=== PATIENT | male | born 1990 | race Caucasian/White ===

== ENCOUNTER 2017-11-30 18:19 | Emergency (ER) | payer SELFPAY ==
[2017-11-30] MEDS ORDERED: Vibramycin 100 MG PO ONE (18:26)
[2017-11-30] MEDS ORDERED: Vibramycin 100 MG ONE (18:29)
--- NOTE | 2017-11-30 18:31 | ERPHSYRPT ---
- History of Present Illness Time Seen by Provider: 11/30/17 18:26 Source: patient Exam Limitations: no limitations Physician History: single nonraised red rash of the left thigh for 4 days after working in the [employer], no fever, mild itch, ambulatory Allergies/Adverse Reactions: No Known Drug Allergies Allergy (Unverified 04/26/13 15:26) Home Medications: No Home Meds [No Home Meds] 0 04/26/13 [History] Hx Tetanus, Diphtheria Vaccination/Date Given: Yes Hx Influenza Vaccination/Date Given: No Hx Pneumococcal Vaccination/Date Given: No - Review of Systems Constitutional: No Fever Eyes: No Eye Redness Ears, Nose, & Throat: No Throat Swelling Respiratory: No Cough, No Dyspnea Cardiac: No Chest Pain Abdominal/Gastrointestinal: No Abdominal Pain Skin: Rash Neurological: No Dizziness - Past Medical History Pertinent Past Medical History: No Other Medical History: RECENT UTI - Past Surgical History Past Surgical History: Yes Musculoskeletal: Orthopedic Surgery Other Surgical History: FX RT LOWER LEG--PLATE IN LOWER LEG-PIN IN ANKLE - Social History Smoking Status: Never smoker Exposure to second hand smoke: No Alcohol Use: Socially Drug Use: none Patient Lives Alone: No Significant Family History: no pertinent family hx - Physical Exam General Appearance: no apparent distress Respiratory Exam: normal breath sounds Extremity Exam: other (red 10cm rash on proximal left thigh, nontender, no sts, no streaks, no tick seen) Neurologic Exam: alert, oriented x 3, cooperative Skin Exam: rash - Course Nursing assessment & vital signs reviewed: Yes - Progress Progress: unchanged Progress Note: 11/30/17 18:20 differential d/w pt as lyme disease Discussed with : Master Will see patient in: office Counseled pt/family regarding: diagnosis, need for follow-up - Departure Time of Disposition: 18:30 Departure Disposition: Home Clinical Impression: Rash Condition: Stable Critical Care Time: No Instructions: Lyme Disease (DC) Prescriptions: Doxycycline Hyclate 100 mg [Vibramycin 100 MG] 1 tab PO BID #20 tab
[2017-11-30 18:53] VITALS: BP 127/82; PULSE 68; O2SAT 97
== END 2017-11-30 18:51 | disposition home or self-care (01) ==
LOC: ED 18:19
DX: R21 Rash and other nonspecific skin eruption (principal)
CPT/HCPCS: 99283; A9270-GY

== ENCOUNTER 2018-01-19 22:11 | Emergency (ER) | payer OTHER ==
[2018-01-19] MEDS ORDERED: Norco 10/325 MG Tablet PO ONE (22:56)
[2018-01-19] MEDS ORDERED: Norco 10/325 MG Tablet ONE (23:17)
--- NOTE | 2018-01-19 23:22 | ERPHSYRPT ---
- History of Present Illness Time Seen by Provider: 01/19/18 22:30 Exam Limitations: clinical condition Patient Subjective Stated Complaint: playing basketball and collided with another player. heard a snap and a pop and now he can not move his right shoulder Triage Nursing Assessment: Pt was playing basketball and collided with another player hurting his right shoulder and neck. Unable to move right arm and neck feels as if there is a cramp in it, pulses normal, vitals wnl Physician History: PATIENT PLAYING BASKETBALL COLLIDED WITH ANOTHER PLAYER SUSTAINED INJURY TO HIS RIGHT SHOULDER AND RIGHT SIDED NECK PAIN. DENIES PAIN OR NUMBNESS RADIATING DOWN RIGHT ARM. DENIES HEAD INJURY, LOSS OF CONSCIOUSNESS. Occurred: just prior to arrival Injuries/Pain Location: neck, upper extremity Loss of Consciousness: no loss of consciousness Quality: sharpness, stabbing Severity of Pain-Max: moderate Severity of Pain-Current: moderate Associated Symptoms (Fall): neck pain Allergies/Adverse Reactions: No Known Drug Allergies Allergy (Verified 01/19/18 22:28) Home Medications: No Home Meds [No Home Meds] 0 mg PO DAILY 04/26/13 [History] Hx Tetanus, Diphtheria Vaccination/Date Given: Yes Hx Influenza Vaccination/Date Given: No Hx Pneumococcal Vaccination/Date Given: No - Review of Systems Constitutional: No Fever, No Chills Eyes: No Symptoms Ears, Nose, & Throat: No Symptoms Respiratory: No Cough, No Dyspnea Cardiac: No Chest Pain, No Edema, No Syncope Abdominal/Gastrointestinal: No Abdominal Pain, No Nausea, No Vomiting, No Diarrhea Genitourinary Symptoms: No Dysuria Musculoskeletal: No Symptoms, Injury, Joint Pain, Joint Swelling, No Back Pain, No Neck Pain Skin: No Rash Neurological: No Dizziness, No Focal Weakness, No Sensory Changes Psychological: No Symptoms Endocrine: No Symptoms All Other Systems: Reviewed and Negative - Past Medical History Pertinent Past Medical History: No Other Medical History: RECENT UTI - Past Surgical History Past Surgical History: Yes Musculoskeletal: Orthopedic Surgery Other Surgical History: FX RT LOWER LEG--PLATE IN LOWER LEG-PIN IN ANKLE - Social History Smoking Status: Never smoker Exposure to second hand smoke: No Alcohol Use: Socially Drug Use: none Patient Lives Alone: Yes Significant Family History: no pertinent family hx - Nursing Vital Signs Nursing Vital Signs: Initial Vital Signs Temperature 98.4 F 01/19/18 22:17 Pulse Rate 83 06/24/18 22:17 Blood Pressure 137/80 01/19/18 22:17 O2 Sat by Pulse Oximetry 97 01/19/18 22:17 Pain Scale Pain Intensity 3 - Frohna Coma Score Best Eye Response (Toney): (4) open spontaneously Best Verbal Response (Frohna): (5) oriented Best Motor Response (Toney): (6) obeys commands Toney Total: 15 - Physical Exam General Appearance: no apparent distress, alert Head Injury: no evidence of injury Eye Exam: PERRL/EOMI ENT Exam: airway nml Neck Exam: normal inspection, No tenderness Respiratory/Chest Exam: normal breath sounds, No chest tenderness, No respiratory distress Cardiovascular Exam: normal heart sounds, regular rate/rhythm Gastrointestinal Exam: soft, No tenderness, No distention, No guarding, No ecchymosis Back Exam: normal inspection, muscle spasm, No vertebral tenderness Extremity Exam: normal range of motion, pelvis stable, joint swelling ( TENDERNESS WITH MODERATE SWELLING RIGHT HUMERAL HEAD, RIGHT RADIAL PULSE 2+), pain with movement, No deformities Peripheral Pulses: carotid (R): 2+, carotid (L): 2+, femoral (R): 2+, femoral (L ): 2+ Neurologic Exam: alert, oriented x 3, cooperative, sensation nml, No motor deficits Skin Exam: normal color, warm, dry SpO2: 97 Oxygen Delivery: Room Air - Radiology Exams Right Shoulder X-ray Interpretation: Interpreted by me, Negative, No Fracture (NO DISLOCATION) - CT Exams Cervical Spine CT Interpretation: Tele-radiologist Report, No Fracture, No Subluxation Ordered Tests: Active Orders 24 hr Category Date Time Status Cervical Collar Application STAT Care 01/19/18 22:54 Active Sling Application STAT Care 01/19/18 23:03 Active CERVICAL SPINE WO CONTRAST [CT] Stat Exams 01/19/18 22:56 Taken SHOULDER Stat Exams 01/19/18 22:55 Taken Medication Summary Discontinued Medications Generic Name Dose Route Start Last Admin Trade Name Freq PRN Reason Stop Dose Admin Hydrocodone Bitart/Acetaminophen 1 tab 01/19/18 22:56 01/19/18 23:18 Mifflin 10/325 Mg Tablet PO 01/19/18 22:57 1 tab STAT ONE Administration Hydrocodone Bitart/Acetaminophen Confirm 01/19/18 23:17 Mifflin 10/325 Mg Tablet Administered 01/19/18 23:18 Dose 1 tab .ROUTE .STK-MED ONE - Progress Progress: pain not gone completely Progress Note: 01/20/18 00:15 ADMINISTERED NORCO 10/325 ORALLY, PLROVIDED WITH RIGHT ARM SLING Counseled pt/family regarding: diagnosis, need for follow-up, rad results - Departure Time of Disposition: 00:25 Departure Disposition: Home Clinical Impression: ACUTE CERVICAL STRAIN, INTERNAL DERRANGEMENT RIGHT SHOULDER Condition: Stable Critical Care Time: No Referrals: DOCTOR,NO FAMILY [Primary Care Provider] - Additional Instructions: WEAR ARM SLING FOR COMFORT FOR 1 WEEK. APPLY ICE OVER SHOULDER SWELLING EVERY 4 HOURS, 30 MINUTES FOR 48 HOURS. CONSULT YOUR PRIMARY CARE PROVIDER FOR FOLLOWUP IN 1 WEEK. ULTRAM 50MG EVERY 6 HOURS NEEDED FOR PAIN DISCOMFORT. Prescriptions: Tramadol HCl 50 mg [Ultram 50 mg] 50 mg PO Q6H PRN PRN #15 tablet PRN Reason: Pain
[2018-01-20 00:39] VITALS: BP 129/66; PULSE 73; O2SAT 95
--- NOTE | 2018-01-20 15:30 | XRAY ---
Exam: 3 views of the right shoulder from 01/19/2018. Comparison: None of the right shoulder. Indication: Sports injury, patient collided with another player. Findings: AP internal rotation, AP external rotation, and Y views of the right shoulder were obtained. I see no acute fracture or dislocation. The right clavicle appears intact. Both the glenohumeral joint space and acromioclavicular joint appear unremarkable. No abnormal periarticular soft tissue calcifications are seen. The visualized right lung appears clear. Impression: 1. No acute right shoulder fracture or dislocation is seen.
--- NOTE | 2018-01-20 15:47 | XRAY ---
Exam: CT of the cervical spine without IV contrast from 01/19/2018. CTDI: 91.25 Comparison: None. Indication: 27-year-old male patient with sports injury, patient collided with another player playing basketball and heard a "snap", felt a pop and now he he has decreased range of motion within his right shoulder/right arm. Technique: Non-IV contrast axial images were obtained through the cervical spine. Reconstructed coronal and sagittal images were created and reviewed. Findings: I see no acute cervical spine fracture, AP subluxation, or abnormal prevertebral soft tissue swelling. The preodontoid space is normal. There is some straightening of the cervical spine on the lateral radiograph which could be due to patient positioning or some paravertebral muscular spasm. The facet joints appear unremarkable. The C1-C2 relationship appears normal. No significant central canal spinal stenosis is seen. I note a minimal posterior vertebral endplate spur to the right of midline at C6-C7. The neural foramen appear unremarkable. No cervical ribs are seen. The thyroid gland appears grossly unremarkable. Lung apices appear unremarkable. A few small nonspecific lymph nodes are seen within the soft tissues of the neck. Impression: 1. No acute cervical spine fracture or AP subluxation is seen..
== END 2018-01-20 00:33 | disposition home or self-care (01) ==
LOC: ED 22:11
DX: S16.1XXA Strain of muscle, fascia and tendon at neck level, initial encounter (principal); S49.91XA Unspecified injury of right shoulder and upper arm, initial encounter; M54.2 Cervicalgia; W51.XXXA Accidental striking against or bumped into by another person, initial encounter; Y93.67 Activity, basketball
CPT/HCPCS: 72125; 73030; 99284; L0172; A9270-GY

== ENCOUNTER 2018-05-22 17:41 | Emergency (ER) | payer SELFPAY ==
[2018-05-22 17:52] VITALS: O2SAT 99
--- NOTE | 2018-05-22 18:03 | ERPHSYRPT ---
- History of Present Illness Time Seen by Provider: 05/22/18 17:50 Source: patient Exam Limitations: no limitations Patient Subjective Stated Complaint: PT states "I have this rash for about 2 days. 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 PT ambulates with an upright steady gait, able to speak in clear full sentences. PT has red non raised spots on his neck, chest, abdomen. Physician History: 27 y/o white male presents with a day and a half h/o itchy skin and rash. began on ant trunk then spread generally. no known new exposures except at work a week ago began working with fiber [employer]. no problems breathing. pt has not tx it with anything. Timing/Duration: day(s) (1.5) Quality: itchy Severity: mild Location: torso, extremities Possible Causes: no cause identified Modifying Factors: Improves With: other (nothing) Associated Symptoms: rash Allergies/Adverse Reactions: No Known Drug Allergies Allergy (Verified 01/19/18 22:28) Home Medications: No Home Meds [No Home Meds] 0 mg PO DAILY 04/26/13 [History] Hx Tetanus, Diphtheria Vaccination/Date Given: No Hx Influenza Vaccination/Date Given: No Hx Pneumococcal Vaccination/Date Given: No Immunizations Up to Date: Yes - Review of Systems Constitutional: No Symptoms Eyes: No Symptoms Ears, Nose, & Throat: No Symptoms Respiratory: No Symptoms Cardiac: No Symptoms Abdominal/Gastrointestinal: No Symptoms Genitourinary Symptoms: No Symptoms Musculoskeletal: No Symptoms Skin: Rash Neurological: No Symptoms Psychological: No Symptoms Endocrine: No Symptoms Hematologic/Lymphatic: No Symptoms Immunological/Allergic: No Symptoms All Other Systems: Reviewed and Negative - Past Medical History Pertinent Past Medical History: No Neurological History: No Pertinent History ENT History: No Pertinent History Cardiac History: No Pertinent History Respiratory History: No Pertinent History Endocrine Medical History: No Pertinent History Musculoskeletal History: No Pertinent History GI Medical History: No Pertinent History History: No Pertinent History Psycho-Social History: No Pertinent History Other Medical History: RECENT UTI - Past Surgical History Past Surgical History: Yes Neuro Surgical History: No Pertinent History Cardiac: No Pertinent History Respiratory: No Pertinent History Gastrointestinal: No Pertinent History Genitourinary: No Pertinent History Musculoskeletal: Orthopedic Surgery Male Surgical History: No Pertinent History Other Surgical History: FX RT LOWER LEG--PLATE IN LOWER LEG-PIN IN ANKLE - Social History Smoking Status: Never smoker Exposure to second hand smoke: Yes Alcohol Use: Socially Drug Use: none Patient Lives Alone: No Significant Family History: no pertinent family hx - Nursing Vital Signs Nursing Vital Signs: Initial Vital Signs Temperature 98.7 F 05/22/18 17:45 Pulse Rate 66 05/22/18 17:45 Respiratory Rate 16 05/22/18 17:45 Blood Pressure 135/76 05/22/18 17:45 O2 Sat by Pulse Oximetry 99 05/22/18 17:45 Pain Scale Pain Intensity 0 - Physical Exam General Appearance: no apparent distress, alert, anxiety Eye Exam: PERRL/EOMI, eyes nml inspection Ears, Nose, Throat Exam: normal ENT inspection, moist mucous membranes Neck Exam: normal inspection, non-tender, supple, full range of motion Respiratory Exam: normal breath sounds, lungs clear, airway intact, No chest tenderness, No respiratory distress, No accessory muscle use, No rhonchi, No wheezing, No stridor Cardiovascular Exam: regular rate/rhythm, normal heart sounds, normal peripheral pulses Gastrointestinal/Abdomen Exam: soft, normal bowel sounds, No tenderness, No guarding, No rebound Rectal Exam: not done Back Exam: normal inspection, normal range of motion, No CVA tenderness, No vertebral tenderness Extremity Exam: normal inspection, normal range of motion, pelvis stable Neurologic Exam: alert, oriented x 3, cooperative, business development assistant II-XII nml as tested Skin Exam: rash (multiple flat sl raised pink rashes on ant and post torso, neck and upper ext bilat), No jaundice, No abrasion, No cyanosis, No diaphoresis , No embolic lesions, No ecchymosis, No jaundice, No laceration Lymphatic Exam: No adenopathy SpO2 Interpretation: normal SpO2: 99 Oxygen Delivery: Room Air - Course Nursing assessment & vital signs reviewed: Yes - Progress Progress: unchanged Counseled pt/family regarding: diagnosis, need for follow-up - Departure Time of Disposition: 18:07 Departure Disposition: Home Clinical Impression: Contact dermatitis, Allergic reaction Condition: Stable Critical Care Time: No Referrals: DOCTOR,NO FAMILY [Primary Care Provider] - Additional Instructions: keep rash areas clean with soap and water. keep skin moist daily with unscented lotion. take benadryl 25mg orally 3 times daily for 4 days. return to ED for worsening issue and see primary doctor for persistent symptoms Prescriptions: Prednisone 10 mg [Deltasone 10 mg] 10 mg PO TID #12 tablet Ranitidine HCl [Zantac] 150 mg PO BID #10 tablet
[2018-05-22] MEDS ORDERED: BENADRYL 25 MG CAPSULE PO ONE (18:18)
[2018-05-22] MEDS ORDERED: Pepcid 20 MG PO ONE (18:20)
[2018-05-22] MEDS ORDERED: Pepcid 20 MG ONE (18:35)
[2018-05-22] MEDS ORDERED: DELTASONE 20 MG ONE (18:35)
[2018-05-22] MEDS ORDERED: BENADRYL 25 MG CAPSULE ONE (18:35)
[2018-05-22] MEDS: DELTASONE 20 MG PO ONE ×2 (18:37→18:39)
[2018-05-22 18:54] VITALS: BP 142/88; PULSE 82
== END 2018-05-22 18:52 | disposition home or self-care (01) ==
LOC: ED 17:41
DX: L23.9 Allergic contact dermatitis, unspecified cause (principal)
CPT/HCPCS: 99283; A9270-GY

== ENCOUNTER 2023-05-11 12:52 | Emergency (ER) | payer BC ==
[2023-05-11 13:01] VITALS: BP 135/92; RESP 18; TEMP 97
[2023-05-11 13:29] LABS: Absolute Neutrophil Ct (ANC) 3.88 x10^3/uL (1.4-6.9); BASOPHIL % 0.6 % (0.0-0.4); Basophil (Absolute #) 0.04 x10^3/uL (0-0.4); Eosinophil % 2.5 % (0.00-5.0); Eosinophil (Absolute #) 0.18 x10^3/uL (0-0.5); Hematocrit 44.9 % (42-50); Hemoglobin 15.6 g/dL (12.5-18.0); IMMATURE GRAN # 0.02 x10^3u/L (0.00-0.03); IMMATURE GRAN % 0.3 % (0.00-0.4); Lymphocyte (Absolute #) 2.51 x10^3/uL (1.0-4.6); Lymphocytes % 34.7 % (24.0-44.0); Mean Corpuscular Hemoglobin 30.2 pg (26-32); Mean Corpuscular Hgb Concent. 34.7 g/dL (32-36); Mean Platelet Volume 10.7 fL (7.5-11.0); Monocyte (Absolute #) 0.61 x10^3/uL (0.0-1.3); Monocytes % 8.4 % (0.0-12.0); Neutrophil % 53.5 % (36.0-66.0); Platelet Count 315 x10^3/uL (150-450); Red Blood Count 5.16 x10^6/uL (4.1-5.6); Red Cell Distribution Width 12.6 % (11.5-14.0); White Blood Count 7.2 x10^3/uL (4.0-10.5)
[2023-05-11 13:42] LABS: ALBUMIN 4.7 g/dL (3.5-5.0); ALKALINE PHOSPHATASE 55 U/L (38-126); ANION GAP 12.6 MEQ/L (5-15); BLOOD UREA NITROGEN 12 mg/dL (9-20); CHLORIDE 107 mmol/L (98-107); Carbon Dioxide 24 mmol/L (22-30); Creatinine 1 1.02 mg/dL (0.66-1.25); EST GLOMERULAR FILTRATION RATE > 60.0 ML/MIN; Glucose 109 mg/dL (74-106); LIPASE 82 U/L (23-300); Potassium 3.9 mmol/L (3.5-5.1); SGOT/AST 28 U/L (17-59); SGPT/ALT 31 U/L (0-50); SODIUM 139 mmol/L (137-145); Total Protein 8.1 g/dL (6.3-8.2)
--- NOTE | 2023-05-11 14:35 | XRAY ---
CLINICAL HISTORY:gen abd pain COMPARISON:None. TECHNIQUE:CT scan of the abdomen and pelvis was performed without IV contrast. Coronal and sagittal reconstructive images were also obtained. FINDINGS: The liver is normal in size. No focal or diffuse parenchymal abnormality. The intrahepatic biliary radicals and the bile ducts are normal. The spleen, pancreas, and adrenal glands are unremarkable. Both kidneys are unremarkable. They are normal in size and shape. No calculi or hydronephrosis. The gallbladder is normal. No pericholecystic collection or radio dense calculi in the gall bladder. Visualized small and large bowel loops are unremarkable. Appendix is not separately visualized, however there is no fat stranding or collection seen in the right iliac fossa. There is no evidence of significant enlargement of the mesenteric or retroperitoneal lymph nodes. The urinary bladder is suboptimally filled. The prostate is unremarkable. No significant abnormality is seen in the visualized lung bases. Focal discal calcification is seen at the posterior margin of the disc at L5-S1 level, would recommend MRI for further evaluation of degenerative disc disease if clinically indicated. IMPRESSION: No significant abnormality is seen in the CT scan abdomen and pelvis without contrast. Electronically Signed by: Haresh Layne MD. (05/11/2023 13:33:30 SHIPPING AND RECEIVING SUPERVISOR)
[2023-05-11 15:13] VITALS: PULSE 62; O2SAT 96
[2023-05-11 15:21] LABS: Appearance Clear (Clear); Bacteria None Seen /HPF (None Seen); Bilirubin Negative (Negative); Blood Negative (Negative); Epithelial Cells None Seen /HPF (None Seen); Glucose, Urine 100 mg/dL (Negative); Hyaline Casts NONE SEEN /LPF (0-2); Ketones Negative (Negative); Leukocyte Esterase Negative (Negative); Nitrite Negative (Negative); Ph 7.5 (4.6-8.0); Protein,Urine Dip Negative (Negative); RBC 0-2 /HPF (0-5); WBC 0-2 /HPF (0-5)
[2023-05-11 15:23] LABS: ADD URINE CULTURE? NO (NO)
--- NOTE | 2023-05-11 15:34 | ERPHSYRPT ---
- History of Present Illness Time Seen by Provider: 05/11/23 12:55 Historian: patient Exam Limitations: no limitations Patient Subjective Stated Complaint: PT HERE FOR RIGHT SIDED ABD PAIN SINCE SATURDAY NIGHT, NO FEVER, LAST BM 2 DAYS AGO, INCREASED OZEMPIC SATURDAY Triage Nursing Assessment: PT ALERT, RESP EASY, SKIN W/D/P, ABD SOFT BUT TENDER TO TOUCH. NO EDEMA , MOVES ALL EXT WELL Physician History: 32 years old male presented in the ER with chief complaint of generalized abdominal cramping with mild nausea but no vomiting for the last 2 to 3 days. Patient reports moderate to severe intensity pain without any significant aggravating or relieving factors. Denies constipation or diarrhea. No fever or chills reported. Allergies/Adverse Reactions: No Known Drug Allergies Allergy (Verified 05/11/23 12:58) Home Medications: Semaglutide [Ozempic] 2 mg SQ DAILY 05/11/23 [History] Hx Tetanus, Diphtheria Vaccination/Date Given: No Hx Influenza Vaccination/Date Given: No Hx Pneumococcal Vaccination/Date Given: No Immunizations Up to Date: Yes Travel Risk - International Travel Have you traveled outside of the country in past 3 weeks: No - Coronavirus Screening Are you exhibiting any of the following symptoms?: No Close contact with a COVID-19 positive Pt in past 14-21 Days: No - Vaccine Status Have you recieved a Covid-19 vaccination: No - Review of Systems Constitutional: No Symptoms Ears, Nose, & Throat: No Symptoms Respiratory: No Symptoms Cardiac: No Symptoms Abdominal/Gastrointestinal: Abdominal Pain Genitourinary Symptoms: No Symptoms Neurological: No Symptoms Psychological: No Symptoms Endocrine: No Symptoms - Past Medical History Pertinent Past Medical History: No Neurological History: No Pertinent History ENT History: No Pertinent History Cardiac History: No Pertinent History Respiratory History: No Pertinent History Endocrine Medical History: No Pertinent History Musculoskeletal History: No Pertinent History GI Medical History: No Pertinent History History: No Pertinent History Psycho-Social History: No Pertinent History Other Medical History: RECENT UTI - Past Surgical History Past Surgical History: Yes Neuro Surgical History: No Pertinent History Cardiac: No Pertinent History Respiratory: No Pertinent History Gastrointestinal: No Pertinent History Genitourinary: No Pertinent History Musculoskeletal: Orthopedic Surgery Male Surgical History: No Pertinent History Other Surgical History: FX RT LOWER LEG--PLATE IN LOWER LEG-PIN IN ANKLE - Social History Smoking Status: Never smoker Exposure to second hand smoke: No Alcohol Use: Socially Drug Use: none Patient Lives Alone: No Significant Family History: no pertinent family hx - Nursing Vital Signs Nursing Vital Signs: Initial Vital Signs Temperature 97.0 F 05/11/23 13:00 Pulse Rate 85 05/11/23 13:00 Respiratory Rate 18 05/11/23 13:00 Blood Pressure 135/92 05/11/23 13:00 O2 Sat by Pulse Oximetry 97 05/11/23 13:00 Pain Scale Pain Intensity 4 - Physical Exam General Appearance: no apparent distress, alert Eye Exam: PERRL/EOMI Ears, Nose, Throat Exam: normal ENT inspection Neck Exam: normal inspection, full range of motion Respiratory Exam: normal breath sounds, lungs clear Cardiovascular Exam: regular rate/rhythm, normal heart sounds Gastrointestinal/Abdomen Exam: soft, normal bowel sounds, tenderness (Mild generalized tenderness) Extremity Exam: normal inspection Neurologic Exam: alert, oriented x 3, cooperative Skin Exam: normal color SpO2 Interpretation: normal SpO2: 96 O2 Delivery: Room Air Ordered Tests: Active Orders 24 hr Category Date Time Status ABDOMEN AND PELVIS W/0 CONTRAS [CT] Stat Exams 05/11/23 13:20 Completed CBC W DIFF Stat Lab 05/11/23 13:00 Completed CMP Stat Lab 05/11/23 13:00 Completed LIPASE Stat Lab 05/11/23 13:00 Completed UA W/RFX UR CULTURE Stat Lab 05/11/23 15:12 Completed Lab/Rad Data: Laboratory Result Diagrams 05/11/23 13:00 05/11/23 13:00 Laboratory Results 05/11/23 05/11/23 05/11/23 Range/Units 15:12 13:00 13:00 WBC 7.2 (4.0-10.5) x10^3/uL RBC 5.16 (4.1-5.6) x10^6/uL Hgb 15.6 (12.5-18.0) g/dL Hct 44.9 (42-50) % MCV 87.0 (78-100) fL MCH 30.2 (26-32) pg MCHC 34.7 (32-36) g/dL RDW 12.6 (11.5-14.0) % Plt Count 315 (150-450) x10^3/uL MPV 10.7 (7.5-11.0) fL Gran % 53.5 (36.0-66.0) % Immature Gran % (Auto) 0.3 (0.00-0.4) % Nucleat RBC Rel Count 0.0 (0.00-0.1) % Eos # (Auto) 0.18 (0-0.5) x10^3/uL Immature Gran # (Auto) 0.02 (0.00-0.03) x10^3u/L Absolute Lymphs (auto) 2.51 (1.0-4.6) x10^3/uL Absolute Monos (auto) 0.61 (0.0-1.3) x10^3/uL Absolute Nucleated RBC 0.00 (0.00-0.01) x10^3u/L Lymphocytes % 34.7 (24.0-44.0) % Monocytes % 8.4 (0.0-12.0) % Eosinophils % 2.5 (0.00-5.0) % Basophils % 0.6 (0.0-0.4) % Absolute Granulocytes 3.88 (1.4-6.9) x10^3/uL Basophils # 0.04 (0-0.4) x10^3/uL Sodium 139 (137-145) mmol/L Potassium 3.9 (3.5-5.1) mmol/L Chloride 107 (98-107) mmol/L Carbon Dioxide 24 (22-30) mmol/L Anion Gap 12.6 (5-15) MEQ/L BUN 12 (9-20) mg/dL Creatinine 1.02 (0.66-1.25) mg/dL Estimated GFR > 60.0 ML/MIN Glucose 109 H (74-106) mg/dL Calcium 9.0 (8.4-10.2) mg/dL Total Bilirubin 0.50 (0.2-1.3) mg/dL AST 28 (17-59) U/L ALT 31 (0-50) U/L Alkaline Phosphatase 55 (38-126) U/L Serum Total Protein 8.1 (6.3-8.2) g/dL Albumin 4.7 (3.5-5.0) g/dL Lipase 82 (23-300) U/L Urine Color Yellow (Yellow) Urine Appearance Clear (Clear) Urine pH 7.5 (4.6-8.0) Ur Specific Carnation 1.020 (1.005-1.030) Urine Protein Negative (Negative) Urine Glucose (UA) 100 A (Negative) mg/dL Urine Ketones Negative (Negative) Urine Blood Negative (Negative) Urine Nitrite Negative (Negative) Urine Bilirubin Negative (Negative) Urine Urobilinogen 1.0 A (0.2) mg/dL Ur Leukocyte Esterase Negative (Negative) U Hyaline Cast (Auto) NONE SEEN (0-2) /LPF Urine Microscopic RBC 0-2 (0-5) /HPF Urine Microscopic WBC 0-2 (0-5) /HPF Ur Epithelial Cells None Seen (None Seen) /HPF Urine Bacteria None Seen (None Seen) /HPF Urine Culture Reflexed NO (NO) - Progress Progress: improved Progress Note: 05/11/23 15:26 32 years old male presented in the ER with chief complaint of generalized abdominal cramping with mild nausea but no vomiting for the last 2 to 3 days. Patient reports moderate to severe intensity pain without any significant aggravating or relieving factors. Denies constipation or diarrhea. No fever or chills reported. Patient has mild tenderness abdomen all over with no guarding or rebound te nderness. Work-up showed normal white count, unremarkable chemistries and no UTI. He is offered pain medication but declined. CT abdomen pelvis is negative for any acute abdominal pelvic findings. Patient later on reported he has been taking Ozempic and have some element of questionable constipation. He recently increased the dose of Ozempic. His pain could be related to diet. Recommended Tylenol/ibuprofen as needed and outpatient follow-up with primary care before next dose of Ozempic next week. Discussed signs symptoms of worsening needing return to ER which she seems understanding. At this point I do not think patient needs any further work-up and is stable for discharge. Counseled pt/family regarding: lab results, diagnosis, need for follow-up, rad results Medical Desision Making - Diagnostic Testing Diagnostic test were ordered, analyzed, and reviewed by me: Yes Radiological Interpretation: Teleradiologist Report - Departure Departure Disposition: Home Clinical Impression: Generalized abdominal cramping Condition: Stable Critical Care Time: No Referrals: SUSY HACKETT NP [Primary Care Provider] - Follow up with PCP 2 days Instructions: Severe Abdominal Pain, Adult (DC) Additional Instructions: Take Tylenol/ibuprofen as needed for pain. Follow-up with your primary care for reevaluation before next dose of Ozempic. Return to ER for intractable abdominal pain, nausea vomiting/fever chills etc.
== END 2023-05-11 15:50 | disposition home or self-care (01) ==
LOC: ED 12:52
DX: R10.84 Generalized abdominal pain (principal); R11.0 Nausea; Z79.85 Long-term (current) use of injectable non-insulin antidiabetic drugs; Z28.310 Unvaccinated for COVID-19
CPT/HCPCS: 36415; 74176; 80053; 81001; 83690; 85025; 99283

== ENCOUNTER 2024-08-16 07:22 | Emergency (ER) | payer BC ==
[2024-08-16 08:09] VITALS: PULSE 76; TEMP 98.9; O2SAT 96
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
[2024-08-16 09:14] LABS: Appearance Clear (Clear); Bacteria None Seen /HPF (None Seen); Bilirubin Negative (Negative); Blood Negative (Negative); Epithelial Cells None Seen /HPF (None Seen); Glucose, Urine Negative (Negative); Ketones Trace (Negative); Leukocyte Esterase Negative (Negative); Nitrite Negative (Negative); Protein,Urine Dip Negative (Negative); RBC 0-2 /HPF (0-5); Specific Gravity 1.025 (1.005-1.030); Urobilinogen 0.2 mg/dL (0.2); WBC 0-2 /HPF (0-5)
[2024-08-16] MEDS ORDERED: TYLENOL 325 MG ONE (09:34)
[2024-08-16] MEDS ORDERED: TYLENOL EXTRA STRENGTH 500 MG ONE (09:35)
[2024-08-16] MEDS: TYLENOL EXTRA STRENGTH 500 MG PO STA (09:36)
--- NOTE | 2024-08-16 10:00 | XRAY ---
CLINICAL HISTORY: fall with right radicular pain COMPARISON: CT abdomen dated 05/11/2023. TECHNIQUE: CT non-contrast scan of lumbar spine done. Axial images obtained with reformatted coronal and sagittal images and submitted for interpretation. One of the following dose reduction techniques were utilized for this exam: Automated exposure control, adjustment of the mA and/or kV according to patient size, use of iterative reconstruction. CTDI:32.07 mGy. DLP; 1058.20 mGy.cm. FINDINGS: Vertebrae: Straightening of lordosis may reflect spasm. No fractures, lytic or sclerotic lesions. Normal bone density without evidence of osteopenia or osteoporosis. Intervertebral Discs: Normal height and signal intensity of the intervertebral discs. No evidence of disc herniation, bulging, or significant degeneration. Spinal Canal and Neural Foramina: Spinal canal is of normal caliber with no evidence of spinal stenosis. Neural foramina are patent bilaterally at all levels. No evidence of nerve root compression. Facet Joints: Normal appearance of the facet joints. No evidence of facet arthropathy or significant degenerative changes. Soft Tissues: Normal appearance of the paraspinal soft tissues. No abnormal masses, fluid collections, or signs of inflammation. IMPRESSION: 1. No detected acute fractures. 2. Straightening of lordosis may reflect spasm. 3. No interval changes regarding bone findings. Electronically Signed by: Haresh Layne MD. (08/16/2024 09:55:45 EST)
--- NOTE | 2024-08-16 10:11 | XRAY ---
CLINICAL HISTORY: tender right pelvis after fall COMPARISON: None. TECHNIQUE: Multiple, contiguous, nonenhanced CT scan of the pelvis and both hips in the axial plane with multiplanar reconstructions. One of the following dose reduction techniques was utilized for this exam: Automated exposure control, adjustment of the mA and/or kV according to patient size, and use of iterative reconstruction. CTDI: 36.53mGy, DLP: 1376.58 mGy*cm. FINDINGS: Bones: Small corticated bony fragments seen related to the lateral right acetabular margin, Could be related to os acetabular or old avulsion fracture Focal subtle hump was noted at the femoral head-neck junction bilaterally more on the right side. With associated minimal erosions and osteophytes noted at the acetabular margin with the possibility of underlying CAM deformity and associated impingement cannot be excluded clinical correlation is advised. Multiple small sclerotic bony lesions were noted at the pelvic bones suggesting bony islands No acute fractures, or lytic, lesions. No evidence of avascular necrosis of the femoral heads. Anterior angulation of the coccyx which is likely a normal variant rather than subluxation clinical correlation is advised. Joints: Normal joint spaces of the hip joints bilaterally. No evidence of joint effusions or intra-articular loose bodies. No significant degenerative changes or osteophyte formation. Soft Tissues: Normal appearance of the soft tissues surrounding the hips. No abnormal masses, swelling, or fluid collections. IMPRESSION: 1. No evidence of acute fractures. 2. Anterior angulation of the coccyx which is likely a normal variant rather than subluxation clinical correlation is advised 3. small corticated bony fragments seen related to the lateral right acetabular margine, Could be related to os acetabular or old avulsion fracture of anterior inferior right iliac spine. 4. Possible bilateral CAM deformity wit the possibility of associated impingement cannot be excluded, clinical correlation is advised Electronically Signed by: Haresh Layne MD. (08/16/2024 10:07:48 EST)
[2024-08-16 10:14] VITALS: BP 120/64
== END 2024-08-16 10:42 | disposition home or self-care (01) ==
LOC: ED 07:22
DX: S79.911A Unspecified injury of right hip, initial encounter (principal); W18.39XA Other fall on same level, initial encounter; M54.50 Low back pain, unspecified
CPT/HCPCS: 72131; 72192; 81001; 99283; 99284; A9270-GY